=== PATIENT | male | born 1970 | race Caucasian/White ===

== ENCOUNTER 2019-01-19 11:41 | Day surgery (SDC) | payer BC ==
[2019-01-18 13:04] VITALS: BMI 21.5
[2019-01-19] MEDS ORDERED: MIDAZOLAM HCL 2 MG/2 ML SINGLE DOSE VIAL ONE (13:21)
[2019-01-19] MEDS ORDERED: PROPOFOL 20 ML ONE ×2 (13:21→14:15)
[2019-01-19] MEDS ORDERED: ONDANSETRON 4 MG/2 ML VIAL IVPUSH PRN (13:49)
[2019-01-19] MEDS ORDERED: oxyCODONE HCL 5 MG TABLET PO PRN ×2 (13:49)
--- NOTE | 2019-01-19 13:59 | HP ---
History & Physical Update - History History: No Change - Physical Physical: No Change - Assessment Assessment: No Change - Plan Plan: No Change
[2019-01-19] MEDS ORDERED: LACTATED RINGERS SOLUTION 1,000 ML IV SCH (14:00)
[2019-01-19] MEDS ORDERED: ACETAMINOPHEN 1000 MG/100 ML VIAL (NON FORMULARY) IVPB ONE (14:03)
[2019-01-19] MEDS ORDERED: LIDOCAINE HCL/PF 2% SDV 5ML VIAL ONE (14:05)
[2019-01-19] MEDS ORDERED: LIDOCAINE HCL 1%, 10 MG/ML (20ML VIAL) ONE (14:07)
[2019-01-19] MEDS ORDERED: ceFAZolin SODIUM 1 GM VIAL IVPB ONE (14:07)
[2019-01-19] MEDS ORDERED: ceFAZolin SODIUM 1 GM VIAL ONE (14:10)
[2019-01-19] MEDS ORDERED: GLYCOPYRROLATE 0.2 MG/1 ML VIAL ONE (14:10)
[2019-01-19] MEDS ORDERED: DEXTROSE 5%-0.45% SALINE 1,000 ML IV SCH (14:15)
[2019-01-19] MEDS ORDERED: LIDOCAINE HCL 1%, 10 MG/ML (20ML VIAL) INF ONE (14:18)
[2019-01-19] MEDS ORDERED: DEXAMETHASONE SOD PHOSPHATE 4 MG/1 ML VIAL ONE (14:22)
[2019-01-19] MEDS ORDERED: ePHEDrine SULFATE 50 MG/1 ML AMPULE ONE (14:33)
[2019-01-19] MEDS ORDERED: ACETAMINOPHEN INJECTION 100 ML IVPB ONE (15:24)
[2019-01-19] MEDS ORDERED: oxyCODONE HCL 5 MG TABLET PO ONE (16:46)
[2019-01-19] MEDS ORDERED: oxyCODONE HCL 5 MG TABLET ONE (16:48)
[2019-01-19 17:24] VITALS: PULSE 52
[2019-01-19] MEDS ORDERED: IBUPROFEN 800 MG/8 ML IJ IVPB SCH (18:00)
[2019-01-19 18:25] VITALS: BP 106/64; TEMP 98
--- NOTE | 2019-01-20 11:57 | OP ---
DATE OF OPERATION: 01/19/2019 PREOPERATIVE DIAGNOSIS: Penile masses. PROCEDURE: Excision of penile masses greater than 5 cm. SURGEON: Ruperto Parham MD ESTIMATED BLOOD LOSS: Minimal. FINDINGS: Coalesced large sebaceous cysts both on the dorsum and the ventrum of the penis. Total size was greater than 5 cm. SPECIMEN: Cyst. PREOPERATIVE INDICATIONS: The patient is a 48-year-old male who presents with large clusters of sebaceous cysts. He comes to the OR for removal. THE OPERATION: The patient was brought to the OR, placed on the table in the supine position, given general anesthesia and IV antibiotics. The groin was prepped and draped sterilely. Both on the ventrum and the dorsum of the penis, there was a grouping of large sebaceous cysts. These were excised in bulk. Hemostasis was maintained with Bovie electrocautery, and the incisions were closed using 3-0 chromic suture. Wound was then dressed with Vaseline Gauze, sterile gauze and Coban, and the patient was then woken up. RUPERTO PARHAM M.D. [id number]
--- NOTE | 2019-01-23 16:35 | PATH ---
Surgical Pathology Report Patient Name: [facility]. Rec. #: [id number] /Age/Gender: 1970 (Age: 48) / M Account: [id number] Location: [facility] Taken: 01/19/2019 Received: 01/20/2019 Reported: 01/23/2019 Physicians: Ruperto Parham M.D. Specimen(s) Received PENILE CYST WALL AND SEBACEOUS CYST Clinical History Penile cysts Final Diagnosis PENILE CYSTS WALL AND SEBACEOUS CYSTS, EXCISION: EPIDERMAL INCLUSION CYSTS WITH FOCAL ACUTE AND CHRONIC INFLAMMATION. Electronically Signed Daniel Barrow M.D. Gross Description Received in formalin labeled "penile cysts wall and sebaceous cysts," is a 3.7 x 3.0 x 0.8 cm aggregate of multiple cantrell-brown, unoriented portions of skin and soft tissue, consistent with disrupted cysts. Cable Engineer sections are submitted in one cassette. /01/20/2019 saudi01/20/2019
== END 2019-01-19 17:10 | disposition home or self-care (01) ==
LOC: JASU-SURG 11:41
PROVIDERS: ATTEND Urology
PROC: 0VBS0ZZ Excision of Penis, Open Approach (ICD-10-PCS; principal; 2019-01-19 13:00)
DX: L72.3 Sebaceous cyst (principal)
CPT/HCPCS: 88304-TC; 94760; J0131